=== PATIENT | male | born 1990 ===

== ENCOUNTER 2023-03-23 16:20 | Emergency (ER) | payer OTHER, BC ==
--- NOTE | 2023-03-23 16:36 | ED ---
General Adult HPI - General Source: patient, RN notes reviewed Mode of arrival: ambulatory Limitations: no limitations <Kirti Nieves - Last Filed: 03/23/23 16:34> <Ford Lang - Last Filed: 03/23/23 20:24> - General Chief complaint: Wound/Laceration Stated complaint: Hand Injury Time Seen by Provider: 03/23/23 16:25 - History of Present Illness Initial comments: 33 year old male presents to the emergency department for evaluation of laceration to right hand. Patient sent in by [facility]. Not up to date on tetanus vaccination. (Kirti Nieves) 33-year-old male presenting to the ED with a chief complaint of laceration to right hand. Patient states he got part of his arms stuck in between to sharp objects at work. Was evaluated by [employer] and was sent to the ED for further evaluation. No other injuries at this time. Tetanus status unknown. No other complaints. (Ford Lang) - Related Data Allergies Allergy/AdvReac Type Severity Reaction Status Date / Time No Known Allergies Allergy Verified 03/23/23 16:24 Review of Systems ROS Other: All systems not noted in ROS Statement are negative. <Kirti Nieves - Last Filed: 03/23/23 16:34> ROS Other: All systems not noted in ROS Statement are negative. <Ford Lang - Last Filed: 03/23/23 20:24> ROS Statement: Those systems with pertinent positive or pertinent negative responses have been documented in the HPI. Past Medical History Past Medical History: No Reported History History of Any Multi-Drug Resistant Organisms: None Reported Past Surgical History: No Surgical Hx Reported Past Psychological History: No Psychological Hx Reported Smoking Status: Never smoker Past Alcohol Use History: None Reported Past Drug Use History: None Reported <Kirti Nieves - Last Filed: 03/23/23 16:34> General Exam Limitations: no limitations <Kirti Nieves - Last Filed: 03/23/23 16:34> General appearance: alert, in no apparent distress Eye exam: Present: normal appearance Neck exam: Present: normal inspection Respiratory exam: Present: normal lung sounds bilaterally Cardiovascular Exam: Present: regular rate, normal rhythm GI/Abdominal exam: Present: soft Extremities exam: Present: other (Right thumb has approximately 2 cm superficial laceration proximal to the PIP joint. Full flexion and extension. Good capillary refill.) Neurological exam: Present: alert, oriented X3 Skin exam: Present: warm, dry <Ford Lang - Last Filed: 03/23/23 20:24> - General Exam Comments Initial Comments: Visual Physical Exam Vital signs reviewed General: Well-appearing, nontoxic, no acute distress. Head: Normocephalic, atraumatic Eyes: PERRLA, EOMI ENT: Airway patent Chest: Nonlabored breathing Skin: No visual rash, normal skin tone Neuro: Alert and oriented 3 Musculoskeletal: No gross abnormalities (Kirti Nieves) Course Vital Signs 03/23/23 16:22 Temperature 98.1 F Pulse Rate 74 Respiratory 20 Rate Blood Pressure 167/117 O2 Sat by Pulse 100 Oximetry Medical Decision Making <Kirti Nieves - Last Filed: 03/23/23 16:34> <Ford Lang - Last Filed: 03/23/23 20:24> - Medical Decision Making Quick note preformed by Kirti Nieves PA-C (Kirti Nieves) Was pt. sent in by a medical professional or institution ([facility], MEDICAL ESTHETICIAN, urgent care, hospital, or group home...) When possible be specific @ -No Did you speak to anyone other than the patient for history (EMS, parent, family, police, friend...)? What history was obtained from this source @ -No Did you review nursing and triage notes (agree or disagree)? Why? @ -I reviewed and agree with nursing and triage notes Were old charts reviewed (outside hosp., previous admission, EMS record, old EKG, old radiological studies, urgent care reports/EKG's, group home records)? Report findings @ -No old charts were reviewed Differential Diagnosis (chest pain, altered mental status, abdominal pain women, abdominal pain men, vaginal bleeding, weakness, fever, dyspnea, syncope, headache, dizziness, GI bleed, back pain, seizure, CVA, palpatations, mental health, musculoskeletal)? @ -Differential Musculoskeletal Muscular strain, contusion, ligament sprain, fracture, arthritis, septic arthritis, bursitis, cellulitis, muscle spasm, nerve compression, DVT, arterial occlusion, herpes zoster, electrolyte abnormality, tumor.... This is not meant to be in all inclusive list EKG interpreted by me (3pts min.). @ -None X-rays interpreted by me (1pt min.). @ -None done CT interpreted by me (1pt min.). @ -None done U/S interpreted by me (1pt. min.). @ -None done What testing was considered but not performed or refused? (CT, X-rays, U/S, labs)? Why? @ -None What meds were considered but not given or refused? Why? @ -None Did you discuss the management of the patient with other professionals (professionals i.e. , PA, MEDICAL ESTHETICIAN, lab, RT, psych nurse, manager social media, shop welder, teacher, president and chief commercial officer, case specialist)? Give summary @ -No Was smoking cessation discussed for >3mins.? @ -No Was critical care preformed (if so, how long)? @ -No Were there social determinants of health that impacted care today? How? (Homelessness, low income, unemployed, alcoholism, drug addiction, transportation, low edu. Level, literacy, decrease access to med. care, retirement, rehab)? @ -No Was there de-escalation of care discussed even if they declined (Discuss DNR or withdrawal of care, Hospice)? DNR status @ -No What co-morbidities impacted this encounter? (DM, HTN, Smoking, COPD, CAD, Cancer, CVA, ARF, Chemo, Hep., AIDS, mental health diagnosis, sleep apnea, morbid obesity)? @ -None Was patient admitted / discharged? Hospital course, mention meds given and route, prescriptions, significant lab abnormalities, going to OR and other pertinent info. @ -Discharge .33-year-old male presenting to the ED status post injury causing laceration to his right thumb. Exam shows superficial laceration not requiring any repair. Laceration was irrigated and dressed with bacitracin and bandage. Tetanus updated. Discharged home in stable condition. Discussed return precautions with patient who verbalized agreement. Undiagnosed new problem with uncertain prognosis? @ -No Drug Therapy requiring intensive monitoring for toxicity (Heparin, Nitro, Insulin, Cardizem)? @ -No Were any procedures done? @ -No Diagnosis/symptom? @ -Right thumb injury, laceration Acute, or Chronic, or Acute on Chronic? @ -Acute Uncomplicated (without systemic symptoms) or Complicated (systemic symptoms)? @ -Uncomplicated Side effects of treatment? @ -No Exacerbation, Progression, or Severe Exacerbation? @ -No Poses a threat to life or bodily function? How? (Chest pain, [place], [place], pneumonia, PE, COPD, DKA, ARF, appy, cholecystitis, CVA, Diverticulitis, Homicidal, Suicidal, threat to staff... and all critical care pts) @ -No (Ford Lang) Disposition <Kirti Nieves - Last Filed: 03/23/23 16:34> Is patient prescribed a controlled substance at d/c from ED?: No Time of Disposition: 20:06 <Ford Lang - Last Filed: 03/23/23 20:24> Clinical Impression: Injury of right thumb Disposition: HOME SELF-CARE Condition: Good Instructions (If sedation given, give patient instructions): Laceration (ED) Additional Instructions: Please return to the Emergency Department if symptoms worsen or any other concerns. Please monitor for signs of infection. Referrals: Hailey Zhao MD [Primary Care Provider] - 1-2 days
[2023-03-23 16:43] VITALS: TEMP 98.1
--- NOTE | 2023-03-23 17:13 | XR ---
Right hand. HISTORY: Laceration COMPARISON: None. TECHNIQUE: 3 views right hand were obtained. FINDINGS: There is no fracture, dislocation, interosseous, intra-articular or soft tissue abnormality. IMPRESSION: No significant adenopathy seen.
[2023-03-23] MEDS ORDERED: BACITRACIN OINT 1 EACH PACKET TOPICAL ONE (20:00)
[2023-03-23] MEDS ORDERED: DIPH,PERTUS(ACELL)TETVAC-LF 0.5 ML VIAL IM ONE (20:00)
[2023-03-23 21:38] VITALS: BP 165/124; PULSE 86; RESP 18
== END 2023-03-23 20:42 | disposition home or self-care (01) ==
LOC: EC 16:20
DX: S61.011A Laceration without foreign body of right thumb without damage to nail, initial encounter (principal); Z23 Encounter for immunization; W26.8XXA Contact with other sharp object(s), not elsewhere classified, initial encounter
CPT/HCPCS: 90471; 90715; 99283